=== PATIENT | male | born 1970 | race Two or more races ===

== ENCOUNTER 2016-07-30 19:16 | Emergency (ER) | payer SELFPAY ==
[2016-07-30] MEDS ORDERED: KETOROLAC TROMETHAMINE 60 MG/2 ML VIAL ONE (20:07)
[2016-07-30] MEDS ORDERED: HYDROMORPHONE HCL 1 MG/ML SYRINGE ONE (20:07)
== END 2016-07-30 20:35 | disposition home or self-care (01) ==
LOC: ED 19:16
DX: S39.012A Strain of muscle, fascia and tendon of lower back, initial encounter (principal); M62.830 Muscle spasm of back; X50.0XXA Overexertion from strenuous movement or load, initial encounter; Y92.9 Unspecified place or not applicable
CPT/HCPCS: 99283 ×2; 96372 ×2; J1170; J1885